=== PATIENT | female | born 1990 | race Caucasian/White ===

== ENCOUNTER → 2020-07-27 | Outpatient (CLI) | payer OTHER ==
[~2020-07-27] MED LIST: COLACE 100MG C100 MG PO; IBUPROFEN600 MG PO; KLONOPIN TAB 00.5 MG PO; NORCO 7.5-3251 EACH PO; PROTONIX40 MG PO; PROVENTIL HFA 61 INH INH
== END ==
LOC: RAD 09:42
DX: R05 Cough (principal); Z87.891 Personal history of nicotine dependence
CPT/HCPCS: 71046